=== PATIENT | male | born 1945 | race Caucasian/White ===

== ENCOUNTER 2019-09-30 07:40 | Emergency (ER) | payer MEDICARE, SELFPAY ==
[2019-09-30] VITALS (7 sets, daily range): BP systolic 180–220; BP diastolic 97–110; PULSE 52–56; RESP 15–20; TEMP 36.6–36.8; O2SAT 95–97; BMI 23.8; BMI 52.2
--- NOTE | 2019-09-30 07:41 | ECG_ITS ---
APPROVED REPORT Exam: Resting ECG HR:53 bpm ECG Measurements Heart Rate 53 AXES NC 198 P 76 QRSd 124 QRS 72 QT 448 T 70 QTc 420 <Conclusion> Sinus bradycardia Left ventricular hypertrophy with QRS widening RBBB Abnormal ECG Electronically signed by : Morteza Arredondo, 09/30/2019 19:14:52
--- NOTE | 2019-09-30 07:44 | CT_ITS ---
PROCEDURE: CT HEAD/BRAIN WO CON Patient Age:73Y CLINICAL INDICATION: Weakness x few days the the COMPARISON: No exams were available for comparison TECHNIQUE: No IV contrast. Standard axial images were obtained. All CT scans at the facility use one or more dose reduction, viz: automated exposure control, ma/kV adjustm the ent per patient size (including targeted exams where dose is matched to indication, i.e. head), or iterative reconstruction technique. FINDINGS: No acute intracranial findings. Mild diffuse cerebral atrophy age-appropriate . Suggestion of subtle low-density in deep white matter compatible with minimal chronic small vessel deep white-matter ischemic gliotic changes commonly encountered with considering aging brain.-and most the notable above the atria of the lateral ventricles No intracranial hemorrhage. no territorial infarct. No hydrocephalus.The ventricles and basal cisterns appear clear and satisfactory. No mass or midline shift nor mass effect. No subdural or extra-axial fluid collection is evident. Posterior ca the the a unremarkable. Skull intact- calvarium unremarkable appearance. Nomastoid effusions. Mastoid air cells are well developed and clear. Middle ear clear. IAC's symmetric. Visualized paranasal sinuses clear with nosinus air-fluid level..... IMPRESSION: No acute intracranial findings Mild cerebral atrophy. Suggestion of minimal deep white matter ischemic gliotic changes at cerebral hemispheres, typical with aging brain Dictated by: Bayron Kuo MD 09/30/2019 08:34 Electronically signed by Bayron Kuo MD in [facility] 09/30/2019 08:34
--- NOTE | 2019-09-30 07:45 | XR_ITS ---
PROCEDURE: XR CHEST PORTABLE Patient Age:73Y CLINICAL HISTORY: weakness History of Parkinson's disease and multi-system atrophy. Progressive difficulty with movement past week COMPARISON: No exams were available for comparison FINDINGS: AP supine portable CXR performed. No previous chest studies for comparison hall monitor leads are in place. Heart upper normal in size borderline cardiomegaly but The right lung is best visualized mildly hyperexpanded but appears clear with no active disease. The left lung demonstrates some minimal atelectasis a towards the left lung base left CP angle.. No pleural effusion or pneumothorax. Normal pulmonary vascularity. Chest wall ribs unremarkable.. IMPRESSION: Lungs clear with nothing definitely acute Minimal linear atelectasis/scarring towards left lung base left CP angle not of acute significance. Dictated by: Bayron Kuo MD 09/30/2019 12:22 Electronically signed by Bayron Kuo MD in [facility] 09/30/2019 12:22
[2019-09-30 08:05] LABS: Appearance,Urine CLEAR (Clear); Bilirubin,Urine Negative (Negative); Blood, Urine Negative (Negative); Color,Urine YELLOW (Yellow); Glucose,Urine (UA) Negative (Negative); Ketones,Urine Negative (Negative); Leukocyte Esterase,Urine Negative (Negative); Microscopic, Urine URINE MICROSCOPIC (MICROSCOPIC); Nitrate,Urine Negative (Negative); PH,Urine 5.5 (5.0-8.5); Protein,Urine Negative (Negative); Urobilinogen,Urine 0.2 EU/dl (0.2)
--- NOTE | 2019-09-30 08:05 | PC.NURSE ---
Pt to CT
--- NOTE | 2019-09-30 08:05 | [facility].EDGENADL ---
ED Disposition Clinical Impression: Alteration in physical mobility, Progressive neurologic decline, Multiple system atrophy, Elevated blood pressure reading Altered mental status Qualifiers: Altered mental status type: disorientation Qualified Code(s): R41.0 - Disorientation, unspecified Disposition: Xfer Short-Term Hosp Condition on Discharge: Fair Referrals: Seferino Melo MD [Staff Physician] - Forms: Transfer Record - ED - Critical Care Critical Care Time: No Attestation: On 09/30/19, the high probability of a clinically significant, sudden or life threatening deterioration of the following system(s) required my full and direct attention, intervention and personal management. The time I documented below is in addition to time spent performing reported procedures but includes the following listed in this critical care notation. Medical Decision Making - Medical Records Medical records reviewed: Yes: I reviewed the patient's medical records. - Rajiv Inquiry Pt receiving controlled substance: No Vital Signs: 09/30/19 07:41 09/30/19 08:23 09/30/19 08:28 Temperature 98.2 F Temperature Source Rectal Pulse Rate Pulse Rate [Right] 56 L 53 L Respiratory Rate 15 20 Blood Pressure Blood Pressure [Right Arm] 220/110 H 202/104 H 180/101 H Blood Pressure Mean [Right Arm] 146 136 127 Blood Pressure Source [Right Arm] Manual Cuff/ Auscultation Blood Pressure Position [Right Arm] Supine 02 Sat by Pulse Oximetry 97 96 Oxygen Delivery Method Room Air Room Air 09/30/19 08:41 09/30/19 09:14 09/30/19 09:30 Temperature Temperature Source Pulse Rate Pulse Rate [Right] 52 L 53 L 55 L Respiratory Rate 16 18 16 Blood Pressure Blood Pressure [Right Arm] 197/97 H 197/102 H 204/107 H Blood Pressure Mean [Right Arm] 130 133 139 Blood Pressure Source [Right Arm] Blood Pressure Position [Right Arm] Supine 02 Sat by Pulse Oximetry 97 97 96 Oxygen Delivery Method Room Air 09/30/19 09:56 Temperature 98 F Temperature Source Pulse Rate 52 L Pulse Rate [Right] Respiratory Rate 17 Blood Pressure 200/100 H Blood Pressure [Right Arm] Blood Pressure Mean [Right Arm] Blood Pressure Source [Right Arm] Blood Pressure Position [Right Arm] 02 Sat by Pulse Oximetry Oxygen Delivery Method Room Air - Lab Data Lab results reviewed: Yes: I reviewed the patient's lab results. Lab Results 09/30/19 07:30: WBC 7.7, RBC 4.63, Hgb 14.5, Hct 42.2, MCV 91.0, MCH 31.3 H, MCHC 34.4, RDW 13.4, Plt Count 155, MPV 8.0, Neut % (Auto) 55.2, Lymph % (Auto) 37.9, Smyth % (Auto) 5.1, Eos % (Auto) 1.1, Baso % (Auto) 0.6, Neut # (Auto) 4.3, Lymph # (Auto) 2.9, Smyth # (Auto) 0.4, Eos # (Auto) 0.1, Baso # (Auto) 0.1 09/30/19 07:41: Urine Color Yellow, Urine Appearance Clear, Urine pH 5.5, Ur Specific [place] 1.020, Urine Protein Negative, Urine Glucose (UA) Negative, Urine Ketones Negative, Urine Blood Negative, Urine Nitrate Negative, Urine Bilirubin Negative, Urine Urobilinogen 0.2, Ur Leukocyte Esterase Negative, Urine RBC None, Urine WBC None, Ur Squamous Epith Cells Occasional, Urine Bacteria None 09/30/19 07:50: Lactate 0.9 09/30/19 07:50: Sodium 135 L, Potassium 4.1, Chloride 102, Carbon Dioxide 27, Anion Gap 10.1, BUN 14, Creatinine 0.80, Estimated Creat Clear 69, Estimated GFR 94, Est GFR ( Amer) 114, Glucose 102 H, Calcium 9.3, Total Bilirubin 0.9, AST 32, ALT 25, Alkaline Phosphatase 57, Troponin I < 0.01, Total Protein 7.1, Albumin 4.4, Globulin 2.7, Albumin/Globulin Ratio 1.6 Result diagrams: 09/30/19 07:30 09/30/19 07:50 Orders (Tests/Meds): ORDERS Category Date Time Status Blood Culture Stat Micro 09/30/19 07:50 Received - CT Data CT Scan: Head Time Received: 08:[address] Reviewed: Yes: I have viewed the radiologist's interpretation Findings Narrative: PROCEDURE: CT HEAD/BRAIN WO CON Patient Age:73Y CLINICAL INDICATION: Weakness x few days the the CO
[2019-09-30 08:11] LABS: Basophils # 0.1 K/mm3 (0-0.2); Basophils % 0.6 % (0.1-2.0); Eosinophils # 0.1 K/mm3 (0.0-0.4); Eosinophils % 1.1 % (0.1-12.0); Hematocrit 42.2 % (42.0-52.0); Hemoglobin 14.5 g/dL (14.1-18.0); Lymphocytes # 2.9 K/mm3 (0.7-4.5); Lymphocytes % 37.9 % (10-50); Mean Corpuscular HGB Conc 34.4 g/dL (31.8-35.4); Mean Corpuscular Hemoglobin 31.3 pg (27.0-31.2); Monocytes # 0.4 K/mm3 (0.1-1.0); Monocytes % 5.1 % (1.7-9.3); Neutrophils # 4.3 K/mm3 (1.8-7.8); Neutrophils % 55.2 % (37.0-80.0); Platelet Count 155 K/mm3 (142-424); Red Blood Count 4.63 M/mm3 (4.60-6.20); Red Cell Distribution Width 13.4 % (11.5-17.5); White Blood Count 7.7 K/mm3 (4.8-10.8)
[2019-09-30 08:12] LABS: Chloride 102 mmol/L (98-107); Lactic Acid 0.9 mmol/L (0.7-2.1); Potassium 4.1 mmoL/L (3.5-5.1); Sodium 135 mmol/L (136-145)
[2019-09-30 08:14] LABS: Squamous Epithelial Cell,Urine Occasional #/hpf (0-5)
[2019-09-30 08:15] LABS: Alanine Aminotransferase 25 U/L (12-78); Albumin Level 4.4 g/dl (3.5-5.0); Albumin/Globulin Ratio 1.6 (1.1-1.8); Alkaline Phosphatase 57 U/L (38-126); Anion Gap 10.1 mEq/L (5-15); Aspartate Amino Transferase 32 U/L (17-59); Bilirubin,Total 0.9 mg/dl (0.2-1.3); Blood Urea Nitrogen 14 mg/dl (9-20); Calcium 9.3 mg/dl (8.4-10.2); Carbon Dioxide 27 mmol/L (22.0-30.0); Creatinine Clearance Estimated 69 mL/min (50-200); Estimated Glomerular Filt Rate 94 ml/min (>60); GFR (African American) 114 ML/MIN (>60); Globulin 2.7 g/dL (1.3-3.2); Glucose 102 mg/dl (74-100); Total Protein,Serum 7.1 g/dl (6.3-8.2)
--- NOTE | 2019-09-30 08:19 | PC.NURSE ---
PT RETURNED FROM CT AT THIS TIME
--- NOTE | 2019-09-30 08:29 | PC.NURSE ---
notified of pt BP
[2019-09-30 08:32] LABS: Troponin I < 0.01 ng/ml (0.00-0.034)
--- NOTE | 2019-09-30 08:56 | PC.NURSE ---
placed call to for neurology.
--- NOTE | 2019-09-30 09:00 | PC.NURSE ---
Dr Ramirez speaking with Dr Dunlap, with neurology.
--- NOTE | 2019-09-30 09:10 | PC.NURSE ---
Dr Dunlap accept pt transfer
--- NOTE | 2019-09-30 09:14 | PC.NURSE ---
Report given to charge nurse Cliff Fiore at ED
--- NOTE | 2019-09-30 09:14 | PC.NURSE ---
[facility] notified of transfer
--- NOTE | 2019-09-30 09:33 | PC.NURSE ---
Notified that pt continues to be hypertensive, no new orders given
--- NOTE | 2019-09-30 09:55 | PC.NURSE ---
[facility] here to transport pt, report given to Jovanna, Medic
== END 2019-09-30 09:57 | disposition short-term general hospital (02) ==
PROVIDERS: Emergency Provider Emergency Medicine
DX: R26.89 Other abnormalities of gait and mobility (principal); G90.3 Multi-system degeneration of the autonomic nervous system; R29.818 Other symptoms and signs involving the nervous system; R03.0 Elevated blood-pressure reading, without diagnosis of hypertension; Z90.09 Acquired absence of other part of head and neck; Z79.899 Other long term (current) drug therapy
CPT/HCPCS: 70450; 71045; 80053; 81001; 83605; 84484; 85025; 87040; 87077; 93005; 99285